=== PATIENT | female | born 1985 | race Caucasian/White ===

== ENCOUNTER 2018-01-06 14:18 | Inpatient (IN) | payer OTHER ==
[2018-01-06 14:49] VITALS: BMI 23.0
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
[2018-01-06] MEDS ORDERED: P-EPHED 60MG/TRIPROLIDI 2.5MG TABLET PO PRN (19:26)
[2018-01-06] MEDS ORDERED: MAG HYDROX/AL HYDROX/SIMETH 30 ML UNIT-DOSE CUP PO PRN (19:26)
[2018-01-06] MEDS ORDERED: MAGNESIUM HYDROX 2400MG/30ML ORAL SUSPENSION 30 ML CUP PO PRN (19:26)
[2018-01-06] MEDS ORDERED: guaiFENesin/D-METHORPHAN HB 10 ML UNIT-DOSE CUPS PO PRN (19:26)
[2018-01-06] MEDS ORDERED: MENTHOL/PHENOL 1 EACH UD MM PRN (19:26)
[2018-01-06] MEDS ORDERED: LOPERAMIDE HCL 2 MG CAPSULE PO PRN (19:26)
[2018-01-06] MEDS ORDERED: MAGNESIUM CITRATE 300 ML BOTTLE PO PRN (19:26)
[2018-01-06] MEDS ORDERED: ACETAMINOPHEN 325 MG TABLET (FP) PO PRN (19:26)
[2018-01-06] MEDS: THIAMINE HCL 100 MG TABLET (FP) PO SCH (23:23)
[2018-01-07 08:15] LABS: URINE APPEARANCE CLEAR; URINE BILIRUBIN NEGATIVE (<2.0 mg/dL); URINE COLOR STRAW; URINE GLUCOSE (UA) NEGATIVE (NEGATIVE); URINE KETONE NEGATIVE (NEGATIVE); URINE NITRITE NEGATIVE (NEGATIVE); URINE PROTEIN NEGATIVE (NEGATIVE); URINE UROBILINOGEN NEGATIVE mg/dL (0.2-1.0)
[2018-01-07 08:22] LABS: URINE LEUK ESTERASE 1+ (NEGATIVE)
[2018-01-07 08:29] LABS: EPI CELLS RARE /HPF (FEW)
--- NOTE | 2018-01-07 09:52 | EKG ---
Test Reason : Blood Pressure : / mmHG Vent. Rate : 075 BPM Atrial Rate : 075 BPM P-R Int : 176 ms QRS Dur : 072 ms QT Int : 414 ms P-R-T Axes : 076 007 052 degrees QTc Int : 462 ms NORMAL SINUS RHYTHM NONSPECIFIC T WAVE ABNORMALITY PROLONGED QT ABNORMAL ECG NO PREVIOUS ECGS AVAILABLE Confirmed by JOSE CHERRY MD ([id number]) on 01/07/2018 9:52:00 AM Referred By: Confirmed By:JOSE CHERRY MD
[2018-01-07 09:53] LABS: HEMATOCRIT 37.9 % (32.4-45.2); HEMOGLOBIN 12.5 GM/dL (10.7-15.3); MCH 29.6 pg (25.7-33.7); MCHC 33.1 g/dl (32.0-36.0); MEAN CELL VOLUME 89.5 fl (80-96); MEAN PLT VOLUME 9.6 fl (7.5-11.1); PLATELET COUNT 208 K/MM3 (134-434); RBC 4.23 M/mm3 (3.60-5.2); WHITE BLOOD COUNT 5.3 K/mm3 (4.0-10.0)
[2018-01-07] MEDS: PRENATAL VITAMINS W/ FOLIC ACID TABLET (FP) PO SCH (10:06)
[2018-01-07] MEDS: NICOTINE 14 MG/24 HOURS TOPICAL PATCH TD SCH (10:06)
[2018-01-07 10:36] LABS: CHLORIDE 105 mmol/L (98-107); POTASSIUM 4.6 mmol/L (3.5-5.1); SODIUM 142 mmol/L (136-145)
[2018-01-07 10:44] LABS: ALBUMIN 3.9 g/dl (3.4-5.0); ALK PHOS 83 U/L (45-117); ANION GAP 9 (8-16); BILIRUBIN,TOTAL 0.4 mg/dL (0.2-1.0); BLOOD UREA NITROGEN 14 mg/dL (7-18); CALCIUM 9.1 mg/dL (8.5-10.1); CO2 28 mmol/L (21-32); CREATININE 0.6 mg/dL (0.55-1.02); GLUCOSE,RANDOM 98 mg/dL (74-106); SGOT/AST 21 U/L (15-37); SGPT/ALT 22 U/L (12-78); TOT PROT 7.2 g/dl (6.4-8.2)
--- NOTE | 2018-01-07 12:21 | PN ---
[facility] Progress Note Note: Patient reports history of seizures and treatment with Gabapentin 600mg BID. Patient recently incarcerated at [facility] and is currently out on bail. Reports last pharmacy that dispensed medication was [facility]. Pharmacy called and verified last dispense of Gabapentin was 11/2016. Gabapentin 600mg BID ordered. Continue to monitor.
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
[2018-01-07] MEDS: GABAPENTIN 300 MG CAPSULE (FP) PO SCH (21:20)
[2018-01-07] MEDS: THIAMINE HCL 100 MG TABLET (FP) PO SCH (21:20)
[2018-01-07] MEDS: NICOTINE POLACRILEX 2 MG GUM BC PRN (22:13)
[2018-01-08] MEDS: GABAPENTIN 300 MG CAPSULE (FP) PO SCH ×2 (09:52→21:23)
[2018-01-08] MEDS: NICOTINE 14 MG/24 HOURS TOPICAL PATCH TD SCH (09:52)
[2018-01-08] MEDS: PRENATAL VITAMINS W/ FOLIC ACID TABLET (FP) PO SCH (09:53)
[2018-01-08] MEDS: NICOTINE POLACRILEX 2 MG GUM BC PRN ×2 (09:53→22:17)
[2018-01-08] MEDS: THIAMINE HCL 100 MG TABLET (FP) PO SCH (21:23)
[2018-01-09] MEDS: NICOTINE POLACRILEX 2 MG GUM BC PRN ×2 (06:15→21:32)
[2018-01-09] MEDS: PRENATAL VITAMINS W/ FOLIC ACID TABLET (FP) PO SCH (10:37)
[2018-01-09] MEDS: GABAPENTIN 300 MG CAPSULE (FP) PO SCH ×2 (10:38→21:31)
[2018-01-09] MEDS: NICOTINE 14 MG/24 HOURS TOPICAL PATCH TD SCH (10:38)
[2018-01-09] MEDS: THIAMINE HCL 100 MG TABLET (FP) PO SCH (21:31)
[2018-01-10] MEDS: GABAPENTIN 300 MG CAPSULE (FP) PO SCH ×2 (10:05→17:32)
[2018-01-10] MEDS: NICOTINE 14 MG/24 HOURS TOPICAL PATCH TD SCH (10:06)
[2018-01-10] MEDS: PRENATAL VITAMINS W/ FOLIC ACID TABLET (FP) PO SCH (10:06)
[2018-01-10] MEDS: NICOTINE POLACRILEX 2 MG GUM BC PRN ×2 (10:06→17:33)
[2018-01-10] MEDS: THIAMINE HCL 100 MG TABLET (FP) PO SCH (21:36)
[2018-01-10] MEDS: MELATONIN 5 MG TABLETS PO PRN (21:37)
[2018-01-11] MEDS: GABAPENTIN 300 MG CAPSULE (FP) PO SCH ×2 (06:44→17:52)
[2018-01-11] MEDS: PRENATAL VITAMINS W/ FOLIC ACID TABLET (FP) PO SCH (10:21)
[2018-01-11] MEDS: NICOTINE 14 MG/24 HOURS TOPICAL PATCH TD SCH (10:21)
[2018-01-11] MEDS: NICOTINE POLACRILEX 2 MG GUM BC PRN (10:22)
[2018-01-11] MEDS: IBUPROFEN 400 MG TABLET (FP) PO PRN (14:53)
[2018-01-11] MEDS: MELATONIN 5 MG TABLETS PO PRN (21:20)
[2018-01-11] MEDS: THIAMINE HCL 100 MG TABLET (FP) PO SCH (21:20)
[2018-01-11] MEDS: hydrOXYzine PAMOATE 50 MG CAPSULE (FP) PO PRN (21:20)
[2018-01-12] MEDS: GABAPENTIN 300 MG CAPSULE (FP) PO SCH ×2 (06:48→17:03)
[2018-01-12] MEDS: NICOTINE POLACRILEX 2 MG GUM BC PRN ×2 (09:36→17:04)
[2018-01-12] MEDS: PRENATAL VITAMINS W/ FOLIC ACID TABLET (FP) PO SCH (09:36)
[2018-01-12] MEDS: NICOTINE 14 MG/24 HOURS TOPICAL PATCH TD SCH (09:36)
[2018-01-12] MEDS: THIAMINE HCL 100 MG TABLET (FP) PO SCH (21:24)
[2018-01-12] MEDS: IBUPROFEN 400 MG TABLET (FP) PO PRN (21:24)
[2018-01-12] MEDS: MELATONIN 5 MG TABLETS PO PRN (21:25)
[2018-01-13] MEDS: GABAPENTIN 300 MG CAPSULE (FP) PO SCH ×2 (06:21→17:08)
[2018-01-13] MEDS: PRENATAL VITAMINS W/ FOLIC ACID TABLET (FP) PO SCH (09:26)
[2018-01-13] MEDS: NICOTINE 14 MG/24 HOURS TOPICAL PATCH TD SCH (09:26)
[2018-01-13] MEDS: NICOTINE POLACRILEX 2 MG GUM BC PRN ×2 (09:26→21:31)
[2018-01-13] MEDS: IBUPROFEN 400 MG TABLET (FP) PO PRN (12:16)
--- NOTE | 2018-01-13 15:03 | PN ---
[facility] Progress Note Note: Patient is 32 female with hx of PCP dependence. Patient reports she has been vomiting. Patient requested results of test which are negative. HCG levels was ordered yesterday 01/12/18 and results are pending. Reports last time vomited with morning, denies abdominal pain or discomfort, hemoptysis. Vital Signs Temperature 97.8 F 01/13/18 07:28 Pulse Rate 58 L 01/13/18 07:28 Respiratory Rate 18 01/13/18 07:28 Blood Pressure 92/59 01/13/18 07:28 O2 Sat by Pulse Oximetry (%) Laboratory Last Values WBC 5.3 K/mm3 (4.0-10.0) 01/07/18 07:30 RBC 4.23 M/mm3 (3.60-5.2) 01/07/18 07:30 Hgb 12.5 GM/dL (10.7-15.3) 01/07/18 07:30 Hct 37.9 % (32.4-45.2) 01/07/18 07:30 MCV 89.5 fl (80-96) 01/07/18 07:30 MCH 29.6 pg (25.7-33.7) 01/07/18 07:30 MCHC 33.1 g/dl (32.0-36.0) 01/07/18 07:30 RDW 15.0 % (11.6-15.6) 01/07/18 07:30 Plt Count 208 K/MM3 (134-434) 01/07/18 07:30 MPV 9.6 fl (7.5-11.1) 01/07/18 07:30 Sodium 142 mmol/L (136-145) 01/07/18 07:30 Potassium 4.6 mmol/L (3.5-5.1) 01/07/18 07:30 Chloride 105 mmol/L (98-107) 01/07/18 07:30 Carbon Dioxide 28 mmol/L (21-32) 01/07/18 07:30 Anion Gap 9 (8-16) 01/07/18 07:30 BUN 14 mg/dL (7-18) 01/07/18 07:30 Creatinine 0.6 mg/dL (0.55-1.02) 01/07/18 07:30 Creat Clearance w eGFR > 60 (>60) 01/07/18 07:30 Random Glucose 98 mg/dL (74-106) 01/07/18 07:30 Calcium 9.1 mg/dL (8.5-10.1) 01/07/18 07:30 Total Bilirubin 0.4 mg/dL (0.2-1.0) 01/07/18 07:30 AST 21 U/L (15-37) 01/07/18 07:30 ALT 22 U/L (12-78) 01/07/18 07:30 Alkaline Phosphatase 83 U/L (45-117) 01/07/18 07:30 Total Protein 7.2 g/dl (6.4-8.2) 01/07/18 07:30 Albumin 3.9 g/dl (3.4-5.0) 01/07/18 07:30 Urine Color Straw 01/06/18 07:30 Urine Appearance Clear 01/06/18 07:30 Urine pH 6.0 (5.0-8.0) 01/06/18 07:30 Ur Specific [place] 1.006 (1.001-1.035) 01/06/18 07:30 Urine Protein Negative (NEGATIVE) 01/06/18 07:30 Urine Glucose (UA) Negative (NEGATIVE) 01/06/18 07:30 Urine Ketones Negative (NEGATIVE) 01/06/18 07:30 Urine Blood Negative (NEGATIVE) 01/06/18 07:30 Urine Nitrite Negative (NEGATIVE) 01/06/18 07:30 Urine Bilirubin Negative (<2.0 mg/dL) 01/06/18 07:30 Urine Urobilinogen Negative mg/dL (0.2-1.0) 01/06/18 07:30 Ur Leukocyte Esterase 1+ (NEGATIVE) H 01/06/18 07:30 Urine WBC (Auto) 1 /hpf (3-5) 01/06/18 07:30 Urine RBC (Auto) 1 /hpf (0-3) 01/06/18 07:30 Ur Epithelial Cells Rare /HPF (FEW) 01/06/18 07:30 RPR Titer Nonreactive (NONREACTIVE) 01/07/18 07:30 Hep C Ab Diagnostic <0.1 s/co ratio (0.0-0.9) 01/07/18 07:30 Liver Fibrosis Interp (.) 01/07/18 07:30 A/P Patient Aox3, in no apparent distress No adventitious breath sounds BS x4, non tender, no distended. Plan: Increase fluids HCG labs pending continue to monitor
[2018-01-13] MEDS: THIAMINE HCL 100 MG TABLET (FP) PO SCH (21:30)
[2018-01-13] MEDS: MELATONIN 5 MG TABLETS PO PRN (21:30)
[2018-01-14] MEDS: GABAPENTIN 300 MG CAPSULE (FP) PO SCH (06:18)
[2018-01-14 06:59] VITALS: BP 89/61; PULSE 65; TEMP 98
[2018-01-14] MEDS: PRENATAL VITAMINS W/ FOLIC ACID TABLET (FP) PO SCH (10:07)
[2018-01-14] MEDS: NICOTINE 14 MG/24 HOURS TOPICAL PATCH TD SCH (10:07)
[2018-01-14] MEDS: IBUPROFEN 400 MG TABLET (FP) PO PRN ×2 (10:07→15:07)
[2018-01-14] MEDS: NICOTINE POLACRILEX 2 MG GUM BC PRN ×2 (10:08→15:05)
--- NOTE | 2018-01-14 14:57 | PN ---
Psychiatric Progress Note Vital Signs: Vital Signs Period Temp Pulse Resp BP Sys/Leonardo Pulse Ox Last 24 Hr 98.0 F 65 18-18 89/61 Date of Session: 01/14/18 Chief Complaint:: Discharge visit HPI: PCP dependnece comorbid with Substance induced mood disorder and Bordeline Personality disorder. ROS: BA. Current Medications: Active Medications Generic Name Dose Route Start Last Admin Trade Name Freq PRN Reason Stop Dose Admin Acetaminophen 650 mg 01/06/18 19:26 Tylenol - PO Q4H PRN FEVER Al Hydroxide/Mg Hydroxide 30 ml 01/06/18 19:26 Mylanta Oral Suspension - PO Q6H PRN DYSPEPSIA Eucalyptus/Menthol/Phenol/Sorbitol 1 each 01/06/18 19:26 Cepastat Lozenge - MM Q4H PRN SORE THROAT Gabapentin 600 mg 01/10/18 18:00 01/14/18 06:18 Neurontin - PO 600 mg Q12H FLACO Administration Guaifenesin 10 ml 01/06/18 19:26 Robitussin Dm - PO Q6H PRN COUGH Hydroxyzine Pamoate 50 mg 01/06/18 19:26 01/11/18 21:20 Vistaril - PO 50 mg Q4H PRN Administration AGITATION Ibuprofen 400 mg 01/06/18 19:26 01/14/18 10:07 Motrin - PO 400 mg Q6H PRN Administration Pain level 4-6 Loperamide HCl 4 mg 01/06/18 19:26 Imodium - PO Q6H PRN DIARRHEA Magnesium Citrate 300 ml 01/06/18 19:26 Citroma - PO Q48H PRN CONSTIPATION Magnesium Hydroxide 30 ml 01/06/18 19:26 Milk Of Magnesia - PO DAILY PRN CONSTIPATION Melatonin 5 mg 01/06/18 22:00 01/13/18 21:30 Melatonin PO 5 mg HS PRN Administration INSOMNIA Nicotine 14 mg 01/07/18 10:00 01/14/18 10:07 Nicoderm Patch - TD 14 mg DAILY FLACO Administration Nicotine Polacrilex 2 mg 01/06/18 19:26 01/14/18 10:08 Nicorette Gum - BC 2 mg Q2H PRN Administration NICOTINE REPLACEMENT RX Multivit/Folic Acid/Iron 1 tab 01/07/18 10:00 05/09/18 10:07 Vitamins (Sjr) - PO 1 tab DAILY FLACO Administration Pseudoephedrine/Triprolidine 1 combo 01/06/18 19:26 Actifed - PO TID PRN NASAL CONGESTION Thiamine HCl 100 mg 01/06/18 22:00 01/13/18 21:30 Vitamin B1 - PO 100 mg HS FLACO Administration Current Side Effect: No Lab tests ordered: No Lab tests reviewed: Yes Provider note:: patient completed this program today(early discharge due to pending appointment this week with her political worker).She didnt meet her treatment goals and will continue to address her issues on outpatient basis .Patient will continue Neurontin 300 mg po tid,scripts for 30 days provided. Therapy provided focusing on relapse prevention. Patient identifies areas of difficulties and ways to utilize her coping skills,,support tp maintain resovery. patient is stable for discharge today. Total face to face time:: 25 Mental Status Exam - Mental Status Exam Alert and Oriented to: Time, Place, Person Cognitive Function: Grossly Intact Patient Appearance: Well Groomed Mood: Euthymic Affect: Mood Congruent Patient Behavior: Cooperative Speech Pattern: Clear Voice Loudness: Normal Thought Process: Goal Oriented Thought Disorder: Not Present Hallucinations: Denies Suicidal Ideation: Denies Homicidal Ideation: Denies Insight/Judgement: Fair Sleep: Fair Appetite: Good Muscle strength/Tone: Normal Gait/Station: Normal Psychiatric Treatment Plan - Problem List (1) Asthma Current Visit: Yes Qualifiers: Asthma severity: mild (2) Nicotine dependence Current Visit: Yes Qualifiers: Nicotine product type: cigarettes (3) PCP dependence Current Visit: Yes (4) Borderline personality disorder Current Visit: Yes (5) Substance induced mood disorder Current Visit: Yes
[2018-01-14] MEDS: hydrOXYzine PAMOATE 50 MG CAPSULE (FP) PO PRN (15:04)
== END 2018-01-14 16:25 | disposition home or self-care (01) | DRG 776 ==
LOC: YASAS 14:18 → Y3E 18:22
PROVIDERS: ADMIT Psychiatry & Neurology Psychiatry; ATTEND Psychiatry & Neurology Psychiatry
PROC: HZ42ZZZ Group Counseling for Substance Abuse Treatment, Cognitive-Behavioral (ICD-10-PCS; principal; 2018-01-06)
DX: F16.10 Hallucinogen abuse, uncomplicated (principal); F17.210 Nicotine dependence, cigarettes, uncomplicated; F60.3 Borderline personality disorder; F19.24 Other psychoactive substance dependence with psychoactive substance-induced mood disorder; F32.9 Major depressive disorder, single episode, unspecified; J45.909 Unspecified asthma, uncomplicated; G40.909 Epilepsy, unspecified, not intractable, without status epilepticus; Z86.73 Personal history of transient ischemic attack (TIA), and cerebral infarction without residual deficits; Z91.5 Personal history of self-harm
CPT/HCPCS: 36415; 80053; 81003; 81015; 84702; 85027; 86593; 93005; 93010

== ENCOUNTER 2019-11-22 21:09 | Emergency (ER) | payer OTHER ==
[2019-11-22 21:20] VITALS: BP 110/61; PULSE 71; TEMP 97.7; BMI 21.1
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
[2019-11-22] MEDS ORDERED: NALOXONE HCL 0.4 MG/ML VIAL IM ONE (21:47)
[2019-11-22] MEDS ORDERED: NALOXONE HCL 0.4 MG/ML VIAL ONE (21:47)
[2019-11-22] MEDS: NALOXONE HCL 0.4 MG/ML VIAL IVPUSH ONE ×2 (22:02)
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
[2019-11-22 22:50] LABS: BASO % 0.7 % (0-2.0); EOS % 3.4 % (0-4.5); HEMATOCRIT 35.7 % (32.4-45.2); HEMOGLOBIN 11.7 GM/dL (10.7-15.3); LYMPH % 38.7 % (8-40); MCH 29.1 pg (25.7-33.7); MCHC 32.7 g/dl (32.0-36.0); MEAN CELL VOLUME 89.1 fl (80-96); MEAN PLT VOLUME 9.6 fl (7.5-11.1); MONO % 6.8 % (3.8-10.2); NEUT % 50.4 % (42.8-82.8); PLATELET COUNT 168 K/MM3 (134-434); RBC 4.01 M/mm3 (3.60-5.2); RDW 14.7 % (11.6-15.6); WHITE BLOOD COUNT 4.7 K/mm3 (4.0-10.0)
[2019-11-22 23:15] LABS: ALBUMIN 3.6 g/dl (3.4-5.0); ALK PHOS 93 U/L (45-117); ANION GAP 5 MMOL/L (8-16); BILIRUBIN,TOTAL 0.2 mg/dL (0.2-1); BLOOD UREA NITROGEN 22.2 mg/dL (7-18); CALCIUM 8.2 mg/dL (8.5-10.1); CHLORIDE 106 mmol/L (98-107); CO2 29 mmol/L (21-32); CREATININE 0.7 mg/dL (0.55-1.3); GLUCOSE,RANDOM 95 mg/dL (74-106); POTASSIUM 3.9 mmol/L (3.5-5.1); SGOT/AST 15 U/L (15-37); SGPT/ALT 23 U/L (13-61); SODIUM 139 mmol/L (136-145); TOT PROT 6.6 g/dl (6.4-8.2)
== END 2019-11-23 02:00 | disposition home or self-care (01) ==
LOC: JER 21:09
PROC: 3E023GC Introduction of Other Therapeutic Substance into Muscle, Percutaneous Approach (ICD-10-PCS; principal; 2019-11-22)
DX: R40.0 Somnolence (principal); F16.20 Hallucinogen dependence, uncomplicated; J45.909 Unspecified asthma, uncomplicated; G40.909 Epilepsy, unspecified, not intractable, without status epilepticus; F17.210 Nicotine dependence, cigarettes, uncomplicated; F60.3 Borderline personality disorder; F32.9 Major depressive disorder, single episode, unspecified; F43.10 Post-traumatic stress disorder, unspecified
CPT/HCPCS: 36415; 80053; 80307; 84703; 85025; 96372; 99283-25